=== PATIENT | female | born 1945 | race Caucasian/White ===

== ENCOUNTER 2022-10-20 11:26 | Observation (INO) | payer MEDICARE, MEDICAID ==
[~2022-10-20] VITALS: Ht 162.6 cm; Wt 57.0 kg
[2022-10-20] VITALS (34 sets, daily range): BP systolic 109–172; BP diastolic 60–100
[2022-10-20 12:00] LABS: BASO% 0.2 % (0-3); EOS% 1.3 % (0-8); HEMOGLOBIN 12.7 g/dl (12.0-16.0); IMMATURE GRANULOCYTES 0.2 % (0.0-5.0); MEAN CORPUSCULAR HGB 31.8 pG CALC (26.0-32.0); MEAN CORPUSCULAR HGB CONC 33.4 g/dL CAL (32.0-36.0); MONO% 11.2 % (2-13); NEUT# 3.49 thou/uL (2.00-7.15); NEUT% 66.1 % (42-76); RED CELL DISTRI WIDTH 13.3 % (11.5-15.5)
[2022-10-20 12:13] LABS: ALBUMIN 3.7 g/dL (3.2-5.0); ALKALINE PHOSPHATASE 77 u/l (38-126); ANION GAP 10 (6-22 (CALC)); BILIRUBIN, TOTAL 0.7 mg/dL (0.02-1.3); BUN 11 mg/dL (8-23); BUN/CREATININE RATIO 14 (12-20 (CALC)); CARBON DIOXIDE 23 mmol/l (22-30); CHLORIDE 105 mmol/l (95-108); CREATININE 0.8 mg/dL (0.5-1.0); GFR FOR AFR.AMER. > 60 ML/MIN (>=60 (CALC)); GFR OTHER RACES > 60 ML/MIN (>=60 (CALC)); POTASSIUM 3.9 mmol/l (3.5-5.1); SGOT/AST 22 u/l (9-36); SODIUM 135 mmol/l (137-146); TOTAL PROTEIN 6.5 g/dL (6.3-8.2)
[2022-10-20 15:50] LABS: URINE BILIRUBIN - DIPSTICK NEGATIVE (NEGATIVE); URINE BLOOD DIPSTICK NEGATIVE (NEGATIVE); URINE COLOR ORANGE; URINE GLUCOSE - DIPSTICK NEGATIVE (NEGATIVE); URINE KETONE TRACE mg/dL (NEGATIVE); URINE LEUK ESTERASE NEGATIVE (NEGATIVE); URINE PH 6.5 (4.5-8.0); URINE PROTEIN - DIPSTICK NEGATIVE (NEG-TRACE); URINE SPECIFIC GRAVITY >=1.030
[2022-10-20 15:51] LABS: URINE NITRITE - DIPSTICK NEGATIVE (Negative)
[2022-10-20] MEDS ORDERED: RIFAMPIN300 MG PO (21:09)
[2022-10-21 00:19] VITALS: BP 160/95
[2022-10-21 04:00] VITALS: BP 140/83
[2022-10-21 04:17] VITALS: BP 140/83
[2022-10-21 18:31] VITALS: BP 185/92
[2022-10-22] VITALS (9 sets, daily range): BP systolic 120–183; BP diastolic 70–104
[2022-10-23] VITALS (8 sets, daily range): BP systolic 140–160; BP diastolic 81–100
[2022-10-23 04:27] LABS: BASO% 0.4 % (0-3); EOS% 3.2 % (0-8); HEMATOCRIT 38.1 % (37.0-47.0); HEMOGLOBIN 12.9 g/dl (12.0-16.0); IMMATURE GRANULOCYTES 0.4 % (0.0-5.0); LYMPH% 22.8 % (15-41); MEAN CELL VOLUME 92.5 fL CALC (80.0-100.0); MEAN CORPUSCULAR HGB 31.3 pG CALC (26.0-32.0); MEAN CORPUSCULAR HGB CONC 33.9 g/dL CAL (32.0-36.0); MONO% 10.9 % (2-13); NEUT# 3.51 thou/uL (2.00-7.15); NEUT% 62.3 % (42-76); RED BLOOD COUNT 4.12 mill/uL (4.20-5.60); RED CELL DISTRI WIDTH 13.2 % (11.5-15.5)
[2022-10-23 04:41] LABS: ALBUMIN 3.3 g/dL (3.2-5.0); ALKALINE PHOSPHATASE 83 u/l (38-126); ANION GAP 11 (6-22 (CALC)); BUN 17 mg/dL (8-23); BUN/CREATININE RATIO 29 (12-20 (CALC)); CARBON DIOXIDE 23 mmol/l (22-30); CHLORIDE 106 mmol/l (95-108); CREATININE 0.6 mg/dL (0.5-1.0); GFR FOR AFR.AMER. > 60 ML/MIN (>=60 (CALC)); GFR OTHER RACES > 60 ML/MIN (>=60 (CALC)); POTASSIUM 3.6 mmol/l (3.5-5.1); SGOT/AST 20 u/l (9-36); SODIUM 136 mmol/l (137-146); TOTAL PROTEIN 6.1 g/dL (6.3-8.2)
[2022-10-23 04:49] LABS: BILIRUBIN, TOTAL 0.1 mg/dL (0.02-1.3)
[2022-10-23 05:11] LABS: TSH, 3RD GENERATION 2.95 uIU/mL (0.47 - 4.68)
[2022-10-24 03:26] VITALS: BP 125/85
[2022-10-24 05:40] LABS: BASO% 0.4 % (0-3); EOS% 3.6 % (0-8); HEMATOCRIT 38.1 % (37.0-47.0); HEMOGLOBIN 12.8 g/dl (12.0-16.0); IMMATURE GRANULOCYTES 0.2 % (0.0-5.0); LYMPH% 29.2 % (15-41); MEAN CELL VOLUME 92.5 fL CALC (80.0-100.0); MEAN CORPUSCULAR HGB 31.1 pG CALC (26.0-32.0); MEAN CORPUSCULAR HGB CONC 33.6 g/dL CAL (32.0-36.0); NEUT# 3.02 thou/uL (2.00-7.15); NEUT% 54.6 % (42-76); RED BLOOD COUNT 4.12 mill/uL (4.20-5.60); RED CELL DISTRI WIDTH 13.4 % (11.5-15.5)
[2022-10-24 05:44] VITALS: BP 139/88
[2022-10-24 05:44] LABS: ALBUMIN 3.3 g/dL (3.2-5.0); ALKALINE PHOSPHATASE 71 u/l (38-126); ANION GAP 7 (6-22 (CALC)); BUN 16 mg/dL (8-23); BUN/CREATININE RATIO 31 (12-20 (CALC)); CARBON DIOXIDE 23 mmol/l (22-30); CHLORIDE 109 mmol/l (95-108); CREATININE 0.5 mg/dL (0.5-1.0); GFR FOR AFR.AMER. > 60 ML/MIN (>=60 (CALC)); GFR OTHER RACES > 60 ML/MIN (>=60 (CALC)); SGOT/AST 24 u/l (9-36); SODIUM 135 mmol/l (137-146); TOTAL PROTEIN 6.1 g/dL (6.3-8.2)
[2022-10-24 05:48] LABS: BILIRUBIN, TOTAL 0.2 mg/dL (0.02-1.3)
[2022-10-24] MEDS ORDERED: AMLODIPINE BESYL5 MG PO (07:25)
[2022-10-24 09:03] VITALS: BP 139/88
== END 2022-10-24 13:06 | disposition home or self-care (01) ==
LOC: ED 11:26 → ED-I 18:10 → ED 18:24 → MS2 18:25
PROVIDERS: Family Medicine; Nurse Practitioner Family; ADMIT Internal Medicine; ATTEND Internal Medicine
DX: R55 Syncope and collapse (principal); I82.C21 Chronic embolism and thrombosis of right internal jugular vein; I67.1 Cerebral aneurysm, nonruptured; I10 Essential (primary) hypertension; Z20.1 Contact with and (suspected) exposure to tuberculosis
CPT/HCPCS: J1650; Q9967